=== PATIENT | female | born 1975 | race Caucasian/White ===

== ENCOUNTER 2019-02-20 09:18 | Emergency (ER) | payer OTHER, SELFPAY ==
[2019-02-20 09:19] VITALS: BP 175/111; PULSE 92; RESP 16; TEMP 36.4; O2SAT 95; BMI 22.8
--- NOTE | 2019-02-20 09:57 | ED.VIS.GEN ---
History of Present Illness Chief Complaint: Flank Pain Informant: Patient Onset: Today Context: Sudden Onset Timing: Continuous Current Severity: Mild Maximum Severity: Severe Prior similar symptoms: Yes - Kidney stone Past Medical History - Allergies and Home Meds Allergies/Adverse Reactions: Allergies No Known Allergies Allergy (Verified 02/20/19 09:22) Primary Care Physician: Wiley Madrigal DO [Primary Care Provider] - Pito Duncan MD [STAFF PHYSICIAN] - (As needed for urology follow up ) Past Medical History: - - Kidney stone Surgical History: hysterectomy Lives: Spouse/ Significant Other Smoking Status: Never smoker Review of Systems All systems negative except as indicated Gastrointestinal: Reports: Abdominal pain - Left flank, Nausea Physical Exam Vital Signs/Narrative: Vital Signs Temp Pulse Resp BP Pulse Ox 02/20/19 09:19 97.6 F L 92 16 175/111 H 95 Inital Vital Signs reviewed: Yes General: Well nourished, Well developed, No Acute Distress Head: Normocephalic, Atraumatic Eyes: Perrl, EOMI ENT: Moist mucous membranes, No rhinorrhea Neck: Supple, Nontender Cardiovascular: Regular rate, Regular rhythm, No murmurs Respiratory: No distress, CTA bilaterally, Chest nontender Abdomen: Soft, Nontender, Nondistended, Normal bowel sounds. Negative for: Tender, Guarding, Rebound tenderness Back: Nontender, Normal Inspection. Negative for: CVA tenderness Extremities: Nontender, No edema Skin: Normal color, No rash Neurological: Alert, Oriented x3, Cranial nerves II-XII grossly intact, Normal Strength, Normal Sensation Psychological: Normal affect, Normal Mood Diagnostic/Tx/Re-eval Laboratory Data 02/20/19 09:50 Urine Color Yellow Urine Clarity Clear Urine pH 5.0 Ur Specific [place] 1.025 Urine Protein 30 H Urine Glucose (UA) Normal Urine Ketones 150 H Urine Occult Blood 250 H Urine Nitrite Negative Urine Bilirubin Negative Urine Urobilinogen Normal Ur Leukocyte Esterase 25 H Urine RBC 5-10 SEEN Urine WBC 0 SEEN Ur Squamous Epith Cells 0-5 SEEN Urine Bacteria 1+ Urine Mucus 0 SEEN - Medical Decision Making She is evaluated for 1 hour of sudden onset of left flank pain. During my evaluation of her patient's pain completely resolved. Physical exam is benign. She is initially hypertensive I attribute that to her pain. Urinalysis does show blood with no other signs of infection. It is mildly contaminated. This is consistent with a kidney stone. Patient was offered blood work and CT but as her symptoms have now resolved she agrees with deferring this. Patient has a history of spontaneously passed kidney stones. At this time we will defer further lab work and CT with a presumptive diagnosis of a kidney stone. She still has mild pain she is given symptomatic treatment including [place], Motrin, tamsulosin and Zofran in case the stone is not completely passed. Patient is counseled that there is a chance that she might need to return the emergency room for imaging and repeat evaluation if her symptoms worsen or do not resolve within the next week. She verbalizes agreement understand this plan. She is given a work note for today. Patient is counseled on signs and symptoms requiring return to the emergency room. Patient verbalizes agreement and understand this plan. Patient discharged home in stable and improved condition. ED Disposition - Plan for ED Patient: Disposition: Home or Assisted Living Diagnosis: Acute left flank pain Instructions: KIDNEY STONE w/ Colic Prescriptions: Tamsulosin HCl [Flomax] 0.4 mg PO DAILY #7 cap Prescription Printed Ibuprofen [Motrin] 600 mg PO Q6H PRN PRN #20 tab PRN Reason: Pain Or Fever Prescription Printed Hydrocodone Bitart/Apap 5-325 [[place]uphin 5MG-325MG] 1 tab PO Q6H PRN PRN 3 Days #12 tab PRN Reason: Pain Prescription Printed Ondansetron [Zofran Odt] 4 mg PO Q8H PRN PRN #12 tab PRN Reason: Nausea Prescription Printed Referrals: Wiley Madrigal DO [Primary Care Provider] - Pito Duncan MD [STAFF PHYSICIAN] - (As needed for urology follow up ) Additional Instructions: Plenty of fluids. If your symptoms worsen or not improving after a week please return to emergency room or follow-up with a urologist.
[2019-02-20 10:02] LABS: Mucous, Urine 0 SEEN /hpf (<or=2+); White Blood Cells 0 SEEN /hpf (0-5)
[2019-02-20 10:12] LABS: Color, Urine Yellow (Yellow); Glucose, Dipstick Normal (Normal); Leukocyte Esterase-Dipstick 25 /ul (Negative); Nitrite-Dipstick Negative (Negative); Occult Blood-Urine 250 /ul (Negative); Protein-Dipstick 30 mg/dl (Negative); Specific Gravity, Urine 1.025 (1.002-1.030); Urine Bilirubin Dipstick Negative (Negative); Urine Clarity Clear (Clear); Urine Urobilinogen Normal (Normal)
[2019-02-20 10:16] LABS: Bacteria 1+ /hpf (None Seen); Ketone-Dipstick 150 mg/dl (Negative); Red Blood Cells-Urine 5-10 SEEN /hpf (0-5); Squamous Epithelial Cells - UA 0-5 SEEN /hpf (5-10)
== END 2019-02-20 11:01 | disposition home or self-care (01) ==
PROVIDERS: Emergency Provider Emergency Medicine; Family Provider Student in an Organized Health Care Education/Training Program; PCP Student in an Organized Health Care Education/Training Program
DX: R10.9 Unspecified abdominal pain (principal); Z87.442 Personal history of urinary calculi; Z90.710 Acquired absence of both cervix and uterus
CPT/HCPCS: 81001; 99282; A4216

== ENCOUNTER 2019-10-29 17:11 | Emergency (ER) | payer OTHER, SELFPAY ==
[2019-10-29 17:11] VITALS: BP 137/108; PULSE 90; RESP 22; TEMP 36.4
[2019-10-29 17:12] VITALS: BP 137/108; PULSE 90; RESP 22; TEMP 36.4; BMI 23.6
--- NOTE | 2019-10-29 17:27 | CT_ITS ---
STUDY: CT BRAIN WITHOUT CONTRAST REASON FOR EXAM: Female, 43 years old. Severe headache RADIATION DOSAGE (If Supplied By Facility): CTDIvol = ( 44.99 ) mGy, DLP = ( 745.49 ) mGycm TECHNIQUE: Transaxial CT imaging of the brain was performed without administration of intravenous contrast material. Individualized dose optimization techniques were used for this CT. COMPARISON: No relevant priors. FINDINGS: Brain parenchyma is without focal lesions, mass effect, acute intracranial hemorrhage, extra parenchymal fluid collections, hydrocephalus or herniation. The skull is intact. CT/Brain/Head without Contrast IMPRESSION: 1. Normal CT brain. Electronically Signed: Ansley Moya, at 18:00 EDT Tel , Service support ,
--- NOTE | 2019-10-29 17:31 | ED.DCSUM_ITS ---
History of Present Illness Chief Complaint: Headache Informant: Patient Narrative: Patient is a 43-year-old previous healthy female who presents to the emergency department for acute onset headache. She states that this started about an hour and a half prior to arrival in the emergency department. She currently rates the pain as a 9 out of 10. She describes as a pressure sensation throughout her entire scalp. She does have a history of headaches before in the past. She did try taking Tylenol for this which did not give her any relief. She has been nauseous but not vomiting. Does like everything is aggravating it including light. She denies any recent illnesses. No stiff neck. No ear pain. No fevers or chills. No chest pain or shortness of breath. No abdominal pain. She denies any head trauma. She denies any weakness in her extremities or loss of sensation. No issues with word finding. No visual changes. Past Medical History - Allergies and Home Meds Allergies/Adverse Reactions: Allergies No Known Allergies Allergy (Verified 02/20/19 09:22) Primary Care Physician: Wiley Madrigal DO [Primary Care Provider] - Prior records reviewed: Yes Past Medical History: None Surgical History: hysterectomy Smoking Status: Never smoker Review of Systems All systems negative except as indicated General: Denies: Chills, Fever, Sweats Eyes: Denies: Visual changes - bilaterally, Diplopia ENT: Denies: Rhinorrhea, Sore throat Cardiovascular: Denies: Chest pain, Palpitations Respiratory: Denies: Dyspnea, Cough Gastrointestinal: Reports: Nausea. Denies: Abdominal pain, Vomiting Musculoskeletal: Denies: Back pain, Extremity Pain Skin: Denies: Rash, Wounds Neurological: Reports: Headache. Denies: Weakness, Numbness Physical Exam Vital Signs/Narrative: Vital Signs Temp Pulse Resp BP 10/29/19 17:12 97.5 F L 90 22 H 137/108 H 10/29/19 17:11 97.5 F L 90 22 H 137/108 H Inital Vital Signs reviewed: Yes General: Well nourished, Well developed, - - Patient does appear in mild distress, holding her head Head: Normocephalic, Atraumatic Eyes: Perrl, EOMI ENT: Moist mucous membranes, No rhinorrhea Neck: Supple, Nontender Cardiovascular: Regular rate, Regular rhythm, No murmurs Respiratory: No distress, CTA bilaterally, Chest nontender Abdomen: Soft, Nontender, Nondistended Back: Nontender, Normal Inspection Extremities: Nontender, No edema Skin: Normal color, No rash Neurological: Alert, Oriented x3, Cranial nerves II-XII grossly intact, Normal Strength, Normal Sensation. Negative for: Left side facial droop, Right side facial droop Psychological: Normal affect, Normal Mood Diagnostic/Tx/Re-eval - Medical Decision Making Patient presents to the emergency department for 9 out of 10 acute onset headache. This is nontraumatic. Due to the severity the patient symptoms will get a CT scan of her head to evaluate for subarachnoid hemorrhage. Will start with Reglan and Benadryl for symptomatic relief. Will add Toradol if no eviden ce of bleed on scan. After CT scan was read as negative I went to reevaluate the patient. I did not see any evidence of acute bleed on the scan. Since she presented within 6 hours of onset of symptoms the sensitivity for the CT scan is near 100%. I discussed this with her and the potential for a lumbar puncture. She states she is starting to feel slightly better after just the Reglan and Benadryl. She would like to hold off at this time. She does want to try the Toradol. We will give this and reevaluate shortly. After Toradol treatment patient feeling completely improved. She does want to go home at this time. Do feel that this is an acceptable plan. I did discuss strict return precautions including any neurological deficits for which to return to the emergency department. She otherwise needs to follow-up with her PCP for close follow-up. She understands and is agreeable this plan. Will discharge home in stable condition. ED Disposition - Plan for ED Patient: Disposition: Home or Assisted Living Diagnosis: Headache Instructions: ED Headache Unspecified Referrals: Wiley Madrigal DO [Primary Care Provider] - 2 Days
[2019-10-29] MEDS: Metoclopramide 10 MG/2 ML Vial 5 MG IV (17:40)
[2019-10-29] MEDS: DiphenhydrAMINE 50 MG/ML Syringe 25 MG IV (17:40)
[2019-10-29] MEDS: Ketorolac 30 MG/ML Syringe IV (18:21)
[2019-10-29 19:31] VITALS: BP 134/76; PULSE 95
== END 2019-10-29 19:34 | disposition home or self-care (01) ==
PROVIDERS: Emergency Provider Emergency Medicine; PCP Student in an Organized Health Care Education/Training Program
DX: R51 Headache (principal); Z90.710 Acquired absence of both cervix and uterus; R11.0 Nausea
CPT/HCPCS: 70450; 96374; 96375; 99282; J7030